=== PATIENT | female | born 1970 | race Caucasian/White ===

== ENCOUNTER 2018-04-03 22:15 | Emergency (ER) | payer OTHER ==
[~2018-04-03] VITALS: Ht 167.6 cm; Wt 90.7 kg
[2018-04-03 22:18] VITALS: Ht 167.6 cm; Wt 90.7 kg
[2018-04-04 01:08] VITALS: BP 137/76
== END 2018-04-04 01:08 | disposition home or self-care (01) ==
LOC: ED 22:15
DX: M54.5 Low back pain (principal); M79.662 Pain in left lower leg
CPT/HCPCS: J1885; J3010

== ENCOUNTER 2019-03-11 17:46 | Emergency (ER) | payer OTHER ==
[~2019-03-11] VITALS: Ht 167.6 cm; Wt 93.4 kg
[2019-03-11 18:01] VITALS: Ht 167.6 cm; Wt 93.4 kg
[2019-03-11 20:23] VITALS: BP 135/97
== END 2019-03-11 20:23 | disposition home or self-care (01) ==
LOC: ED 17:46
DX: L60.0 Ingrowing nail (principal); L03.032 Cellulitis of left toe
CPT/HCPCS: J2001

== ENCOUNTER 2019-10-06 08:55 | Emergency (ER) | payer OTHER ==
[~2019-10-06] VITALS: Ht 167.6 cm; Wt 93.9 kg
[2019-10-06 09:02] VITALS: Ht 167.6 cm; Wt 93.9 kg
[2019-10-06 13:43] VITALS: BP 112/71
== END 2019-10-06 13:59 | disposition home or self-care (01) ==
LOC: ED 08:55
DX: N39.0 Urinary tract infection, site not specified (principal); E03.9 Hypothyroidism, unspecified; Z90.89 Acquired absence of other organs
CPT/HCPCS: J1885